=== PATIENT | female | born 1965 | race Caucasian/White ===

== ENCOUNTER 2020-10-03 10:09 | Emergency (ER) | payer MEDICARE, OTHER ==
[~2020-10-03] VITALS: Ht 170.2 cm; Wt 81.6 kg
[~2020-10-03 10:09] MED LIST: ATIVAN1 MG PO; EFFEXOR XR150 MG PO; SYNTHROID50 MCG PO
[2020-10-03] MEDS ORDERED: CHANTIX1 EACH PO (10:25)
[2020-10-03] MEDS ORDERED: TAMSULOSIN HCL0.4 MG PO (10:25)
[2020-10-03] MEDS ORDERED: BRINTELLIX20 MG PO (10:27)
[2020-10-03] MEDS ORDERED: OXYBUTYNIN CHLOR5 MG PO (14:14)
== END 2020-10-03 14:21 | disposition home or self-care (01) ==
LOC: ED 10:09
DX: R10.9 Unspecified abdominal pain (principal); F17.200 Nicotine dependence, unspecified, uncomplicated; Z88.2 Allergy status to sulfonamides; Z79.899 Other long term (current) drug therapy
CPT/HCPCS: 74177; 80053; 81001; 83690; 85025; 99284-25; J7030; Q9967